=== PATIENT | male | born 1995 | race African-American/Black ===

== ENCOUNTER 2019-04-28 00:57 | Emergency (ER) | payer BC, OTHER ==
[~2019-04-28] VITALS: Ht 177.8 cm; Wt 64.0 kg
[2019-04-28 02:46] VITALS: BP 118/79
[2019-04-28] MEDS: HYDROCODONE/ACETAMINOPHEN 5/325MG TABLET PO ONE (02:46)
[2019-04-28] MEDS: AMOXICILLIN/POTASSIUM CLAVULANATE 875/125MG TAB PO ONE (02:46)
== END 2019-04-28 02:56 | disposition home or self-care (01) ==
LOC: ER 00:57
DX: K02.9 Dental caries, unspecified (principal); K04.7 Periapical abscess without sinus; F12.10 Cannabis abuse, uncomplicated
CPT/HCPCS: 99283